=== PATIENT | female | born 1980 | race Caucasian/White ===

== ENCOUNTER → 2019-09-12 | Outpatient (CLI) | payer OTHER, SELFPAY ==
[2015-05-19 10:22] VITALS: BMI 37.3
--- NOTE | 2019-09-12 09:00 | LES_PTH ---
PATIENT: MALDONADO KINCAID LOC: [facility] U#:[id number] AGE/SX: 39/F ROOM: RE09/12/[address]: Dr. Vladimir Alvarez MD : 1980 BED: DIS: 09/12/2019 SPEC #: [id number] RECD: 09/12/19 14:59 STATUS: CHELSIE REMic #: [id number] HUMERA: 09/12/19 09:[address]: Vladimir Alvarez DEPT: SURGICAL PATHOLOGY RECD BY: Junior Zendejas ENTERED: 09/13/19 09:12 SP TYPE: Lesion OTHR DR: Dr. Mateo Peterson III, MD Tissues: Mouth, NOS Procedures: Special Stain Group I Surgery Specimen Level IV GMS Stain (control) HEADER OPERATION: Biopsy PRE-OP DIAGNOSIS: Lesion of oral cavity TISSUE SUBMITTED: Lesion of oral cavity MICROSCOPIC DIAGNOSIS Lesion of oral cavity, biopsy: A fragment of squamous mucosa with hyperkeratosis, parakeratosis, acute inflammation and superficial bacterial colonization. Special stain for fungi is negative for organisms; matched control is appropriate. Negative for malignancy. See comment. CHRIS:bahman 09/16/19 COMMENT Clinical correlation and appropriate follow up are necessary. MICROSCOPIC DESCRIPTION Slides are reviewed. GROSS DESCRIPTION Received in fixative is one container labeled with the patient's name and designated oral cavity mass. The specimen consists of a piece of johnson mucosal tissue measuring 0.3 x 0.2 x 0.1 cm. The specimen is totally submitted in one cassette. / CHRIS:bahman 09/13/19 TC:2 CPT: 25336, 66051
== END | disposition home or self-care (01) ==
LOC: LABSPEC 15:13
PROVIDERS: PCP Family Medicine; Referring Provider Otolaryngology; Visit Provider Otolaryngology
DX: K13.70 Unspecified lesions of oral mucosa (principal)
CPT/HCPCS: 88305; 88312

== ENCOUNTER 2023-09-01 18:13 | Emergency (ER) | payer BC, SELFPAY ==
[2023-09-01 18:14] VITALS: BP 132/77; PULSE 108; RESP 22; TEMP 36.1; O2SAT 99
[2023-09-01 18:15] VITALS: BMI 37.8
--- NOTE | 2023-09-01 18:22 | NURSING ---
NO OLD EKGS
--- NOTE | 2023-09-01 18:47 | CT_ITS ---
INDICATION: PAIN. Additional history: Diffuse Abdomen Pain Today Hx:T Cell Lymphoma,Ovarian Cyst,Appendectomy EXAMINATION: CT ABDOMEN AND PELVIS with CONTRAST - CT Abdomen And Pelvis W/ Contrast Injection TECHNIQUE: Multiple axial images were obtained of the abdomen and pelvis following administration of IV contrast. Planar reconstructions obtained. A radiation dose optimization technique was used for this scan. RADIATION DOSAGE (If Supplied By Facility): CTDIvol = ( 16.46 ) mGy, DLP = ( 1128.31 ) mGycm IV Contrast dosage and agent: 100 mL Isovue-300 Oral contrast: None. COMPARISON: No pertinent previous studies for comparison.. FINDINGS: LOWER THORAX: Lungs are clear. Cardiac contour is normal, no pericardial effusion. No coronary vascular calcifications noted. HEPATOBILIARY: Liver: The liver is homogeneous and shows no evidence of focal lesion. Gallbladder: Gallbladder contains multiple moderate size calcifications, largest measuring 1.6 cm. No free fluid. No ductal dilatation. Pancreas: Pancreas is normal size configuration and density. No mass is noted. Spleen: The spleen is homogeneous and normal in size. . BOWEL: Stomach: The stomach is normal in size configuration, no evidence of focal masses, abnormal calcifications. No hiatal hernia noted. Bowel: Small and large have normal configuration, no masses or bowel obstruction noted. Large amount of retained stool throughout the colon, developing constipation is a consideration. No evidence diverticulitis. Appendix: Status post appendectomy.: GENITOURINARY: Adrenals: Both adrenal glands are normal in size. Kidneys: Kidneys appear symmetric in size. No calcifications are seen in the collecting system. There is no hydronephrosis or surrounding fluid. Bladder: Normal Pelvic organs: The visualized pelvic organs are normal in size and configuration. No masses or adenopathy noted. Trace fluid in the cul-de-sac which is nonspecific. RETROPERITONEUM: There is normal appearance of the abdominal aorta and inferior vena cava. LYMPH NODES: No evidence of retroperitoneal or para-aortic masses fluid collections or adenopathy. PERITONEAL CAVITY: No ascites noted ANTERIOR ABDOMINAL WALL: Normal, no hernia identified. BONES AND SOFT TISSUES: The skeleton shows no evidence for fractures or destructive lesions. OTHER: None CT/Abdomen/Pelvis W IV Cont ONLY IMPRESSION: 1. No masses bowel obstruction abscess free fluid or free air. Moderate to large amount retained stool in the colon. Developing constipation is a consideration. 2. Status post appendectomy. 3. Cholelithiasis without ductal dilatation. 4. No evidence of renal calcification or obstructive uropathy. 5. Trace nonspecific fluid in the cul-de-sac. Electronically Signed: Buck Garcia MD at 19:59 EDT ,
[2023-09-01] MEDS: Ondansetron 4 MG/2 ML Vial IV (18:53)
[2023-09-01] MEDS: Morphine 4 MG/ML Syringe IV (18:53)
[2023-09-01 19:18] LABS: Absolute Neutrophil Count 4.1 X10^3/uL (2.0-7.7); Basophil# 0.04 X10^3/uL; Basophil% 0.6 % (0-1); Eosinophil# 0.04 X10^3/uL; Eosinophils% 0.6 % (0-5); Hematocrit 40.4 % (37-47); Hemoglobin 13.6 g/dL (12.0-15.0); Lymphocyte % 29.3 % (19-41); Mean Corp Hgb Conc 33.7 g/dL (32-36); Mean Corpuscular Hgb 29.8 pg (27.0-32.0); Mean Corpuscular Volume 88.6 fL (81-99); Mean Platelet Vol. 10.6 fl (6.2-12.0); Monocyte# 0.67 X10^3/uL; Monocyte% 9.8 % (0-10); NRBC Flagged by Analyzer 0 % (0-5); Neutrophil # 4.06 X10^3/uL (2.7-7.7); Neutrophil % 59.6 % (47-70); Platelet Count 294 K/mm3 (150-450); RBC Distribution Width CV 11.7 % (11.6-14.6); RBC Distribution Width SD 37.5 fl (35.1-43.9); Red Blood Count 4.56 M/mm3 (4.2-5.4); White Blood Count 6.8 K/mm3 (4.4-11.0)
[2023-09-01 19:26] LABS: Internal QC Validated? YES +Cl - CLEAR BKGD; Pregnancy, Serum, hCG Quali. NEGATIVE Negative
[2023-09-01 19:37] LABS: AST(SGOT) 19 U/L (15-37); Alanine Aminotransfer ALT/SGPT 19 U/L (13-56); Albumin, Serum 3.4 g/dL (3.2-5.0); Alkaline Phosphatase 68 U/L (45-117); Anion Gap 11 (5-15); BUN 16 mg/dL (7-18); Calcium,Total 8.9 mg/dL (8.5-10.1); Chloride 106 mmol/L (98-107); Creatinine, Serum 0.84 mg/dL (0.55-1.02); EST Glomerular Filtration Rate 79 mL/min (>60); Est Glom Filt Rate - Afr Amer 95 mL/min (>60); Estimated Creatinine Clearance 110.21 ml/min; Globulin 3.4 g/dL (2.2-4.2); Glucose 118 mg/dL (74-106); Lipase 50 U/L (13-75); Potassium 3.2 mmol/L (3.5-5.1); Protein, Total 6.8 g/dL (6.4-8.2); Sodium Level 137 mmol/L (136-145)
--- NOTE | 2023-09-01 19:40 | EX.ED.DYSGE1 ---
HPI History of Present Illness Chief Complaint: Abd Pain Detail of Chief Complaint: Unbearable pain onset 3 hours prior to arrival Informant: patient Onset/Context/Timing Onset: Today and Hours Context: Sudden Onset Timing: Intermittent and Waxes and wanes Quality: Severe unbearable pain Location: Abdomen and migratory Current Severity: Severe Maximum Severity: Severe Worsened by: Nothing Relieved by: Nothing Associated Symptoms Associated Symptoms: No constitutional symptoms, no respiratory or cardiac symptoms and no neuro Narrative Narrative: Patient is a 43-year-old woman who was diagnosed with T-cell lymphoma around 2018 2019. She is seen by oncology at [facility], [place]. She was recently started on a new medication bexartene. She takes 1 tablet daily. This has known side effect of pain and 30% of patients. Other common side effects are rash which she had prior to the medication, itching, headache and possible infection. She denies headache. Denies double vision blurred vision loss of vision. Denies ringing ears decreased hearing. She has trouble with speech or swallowing. She denies cardiac or respiratory symptoms. She denies vomiting or diarrhea. She denies dysuria, frequency, urgency or hematuria. She denies upper or lower extremity pain. Patient reports waking up several times at night having difficulty going back to sleep. She gets up to urinate. She was placed on gabapentin for trigeminal neuralgia. This was bilateral. She is seen by neurology at [facility] and had recent MRI of her brain. Patient was brought in because of pain. Prior similar symptoms: No Recent Illness/Hospitalization: Yes [facility] Medical History Anemia Neoplasm of unspecified behavior of bone, soft tissue, and skin Depressive disorder Dermatitis Home Medications ?Medication ?Instructions ?Recorded ?Last Taken ?Type Loratadine 10 mg PO DAILY PRN Allergies 05/25/20 Unknown History cetirizine 10 mg capsule 20 mg PO DAILY 05/25/20 09/01/23 History famotidine-Ca carb-mag hydrox 10 1 each PO DAILY PRN Indigestion 05/25/20 Unknown History mg-800 mg-165 mg chewable tablet fluoxetine 40 mg capsule 40 mg PO DAILY 05/25/20 Unknown History bexarotene 75 mg capsule 150 mg PO DAILY 09/01/23 09/01/23 History cetirizine 20 mg .ROUTE DAILY 09/01/23 Unknown History fexofenadine hydrochloride 360 mg DAILY 09/01/23 Unknown History gabapentin 300 mg capsule 300 mg PO QHS 09/01/23 Unknown History levothyroxine 50 mcg tablet 50 mcg PO DAILY 09/01/23 Unknown History triamcinolone acetonide 0.1 % applic topical BID PRN PRN rash 09/01/23 Unknown History topical cream Allergy/AdvReac Type Severity Reaction Status Date / Time animal dander Allergy Intermediate Shortness Verified 09/01/23 18:31 of breath erythromycin base AdvReac Severe Diarrhea Verified 09/01/23 18:31 (Erythromycin Base) Family History Mother Breast cancer Grandmother Skin cancer Breast cancer Aunt Breast cancer Grandfather Lung cancer Surgical History History of removal of ovarian cyst History of appendectomy Social History (Updated 09/01/23 @ 19:[address] Keaton Peña MD) household members: spouse Smoking Status: Never smoker ROS ROS ED Constitutional Constitutional ED: Denies chills, fever(s), subjective, sweats or weight loss Eyes Eyes: Denies blurry vision, change in vision or diplopia ENT ENT ED: Denies ear pain, rhinorrhea or sore throat Cardiovascular Cardiovascular: Denies chest pain or palpitations Respiratory/Chest Respiratory/Chest: Denies cough, dyspnea or dyspnea on exertion Gastrointestinal Gastrointestinal: Reports abdominal pain; Denies constipation, diarrhea, melena or vomiting Genitourinary Genitourinary ED: Denies dysuria, hematuria or urinary frequency Musculoskeletal Musculoskeletal: Denies arthralgias, back pain, myalgias or neck pain Integumentary Reports rash Neurologic Neurologic: Denies headache(s) or paresthesias Psychiatric Psychiatric: Denies anxiety or depression Hematologic/Lymphatic Hematologic/Lymphatic: Reports systems reviewed and no addt'l complaints, except as documented EXAM Physical Exam Const Vital Signs: 09/01/23 18:14 09/01/23 20:14 Temperature 96.9 F L 98.1 F Temperature Source Temporal Temporal Pulse Rate 108 H 64 Respiratory Rate 22 H 16 Blood Pressure 132/77 H 125/67 H Blood Pressure Mean 95 86 Pulse Ox 99 96 Oxygen Delivery Method Room Air Room Air Positive well nourished and well developed Constitutional Narrative: Patient is tearful. At times she becomes confused. She was upset when she could not answer questions immediately. General Appearance ED: well developed; Negative for pallor HEENT Reports moist mucous membranes HEENT Narrative: Head is atraumatic normocephalic. Ears normal. Nares patent. Posterior pharynx is normal. Eyes PERRL and EOMs intact bilaterally General Eye ED: Negative for pale conjunctiva or scleral icterus Neck no lymphadenopathy, supple and no JVD Chest Wall inspection of chest normal and palpation of chest normal Resp normal respiratory effort and clear to auscultation bilaterally Cardio regular rhythm, S1 normal heart sound, S2 normal heart sound and no murmurs; Negative for regular rate Rate: tachycardic GI normal to inspection, nondistended, normoactive bowel sounds, non-distended and no masses; Negative for non-tender or hepatosplenomegaly Auscultation: hypoactive bowel sounds Palpation: tender LLQ and LUQ Extremity normal to inspection Extremity Narrative: There is no clubbing or cyanosis. General Extremety ED: Negative for edema or tenderness General Extremity: Negative for edema Neuro oriented x3, CN's II-XII intact bilaterally and no sensory deficits noted Psych Mood & Affect: depressed and tearful Skin No no rashes or lesions noted and skin turgor normal General Skin Exam: Negative for jaundice or pallor MDM MDM MDM Narrative Medical decision making narrative: The patient may represent adverse effects to the medication. Because of concern for possible infection blood work was obtained and CT of the abdomen was obtained. There is a 1 to 10% chance of arthralgia. Also incidence of renal dysfunction. Lab Data Attestation: I reviewed the patient's lab results. Lab results narrative: CBC is normal. Comprehensive metabolic panel is unremarkable. Potassium is 3.2. Glucose is 118 with normal CO2 anion gap. BUN and creatinine are normal with an estimated GFR 79. Because of the left upper quadrant pain lipase was obtained and is negative. Liver enzymes are normal. Labs: Laboratory Results - last 24 hr 09/01/23 09/01/23 09/01/23 18:33 19:20 20:32 WBC 6.8 RBC 4.56 Hgb 13.6 Hct 40.4 MCV 88.6 MCH 29.8 MCHC 33.7 RDW Std Deviation 37.5 RDW Coeff of Sheryl 11.7 Plt Count 294 MPV 10.6 Immature Gran % (Auto) 0.100 Neut % (Auto) 59.6 Lymph % (Auto) 29.3 Shannon % (Auto) 9.8 Eos % (Auto) 0.6 Baso % (Auto) 0.6 Absolute Neuts (auto) 4.1 Absolute Lymphs (auto) 2.00 Nucleated RBC % 0 Sodium 137 Potassium 3.2 L Chloride 106 Carbon Dioxide 20.0 L Anion Gap 11 BUN 16 Creatinine 0.84 Estim Creat Clear Calc 110.21 Est GFR (MDRD) Af Amer 95 Est GFR (MDRD) Non-Af 79 BUN/Creatinine Ratio 19.0 Glucose 118 H Lactic Acid 3.2 H* 1.7 Calcium 8.9 Total Bilirubin 0.40 AST 19 ALT 19 Alkaline Phosphatase 68 Total Protein 6.8 Albumin 3.4 Globulin 3.4 Albumin/Globulin Ratio 1.0 Lipase 50 Serum , Qual NEGATIVE Repeat lactate after fluids 1.7. Radiography Diagnostic Testing: Clinical Impression(s) from Imaging Studies Abdomen/Pelvis CT 09/01/23 18:47 IMPRESSION: 1. No masses bowel obstruction abscess free fluid or free air. Moderate to large amount retained stool in the colon. Developing constipation is a consideration. 2. Status post appendectomy. 3. Cholelithiasis without ductal dilatation. 4. No evidence of renal calcification or obstructive uropathy. 5. Trace nonspecific fluid in the cul-de-sac. Electronically Signed: Buck Garcia MD at 19:59 EDT , CT of the abdomen pelvis with IV contrast reveals multiple large gallstones. There is no acute inflammation of the gallbladder. Kidneys appear normal with no evidence of renal calculi or evidence of hydronephrosis. There are no inflammatory changes noted within the abdomen. Awaiting formal read by radiologist, 1949. Treatment and Re-Evaluation :: Patient was reevaluated more than once. She was told the cause of her abdominal pain is uncertain. This may be an adverse reaction to the chemo medicine she is taking. Recommend contacting her oncologist at [facility]. She was told she has gallstones. She was unaware of this. 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, Adult T-cell lymphoma Prescriptions: No Action fluoxetine 40 MG capsule 40 mg PO DAILY famotidine-Ca carb-mag hydrox 1 EACH tablet,chewable 1 each PO DAILY PRN (Reason: Indigestion) cetirizine 10 MG capsule 20 mg PO DAILY Loratadine 10 mg PO DAILY PRN (Reason: Allergies) bexarotene 75 mg capsule 150 mg PO DAILY levothyroxine 50 mcg tablet 50 mcg PO DAILY gabapentin 300 mg capsule 300 mg PO QHS fexofenadine hydrochloride 360 mg DAILY cetirizine 20 mg .ROUTE DAILY triamcinolone acetonide 0.1 % cream topical BID PRN PRN (Reason: rash) Primary Care Provider: Miguelina Wang Referrals: Miguelina Wang MD [Primary Care Provider] - As Needed Activity Restrictions/Additional Instructions: 1. Recommend contacting your oncologist at [facility] to determine if the chemo medication is the cause of your pain Print Language: Egyptian Disposition Disposition: Home, Self Care
[2023-09-01 20:05] LABS: Lactic Acid 3.2 mmol/L (0.4-1.9)
[2023-09-01 20:14] VITALS: BP 125/67; PULSE 64; RESP 16; TEMP 36.7; O2SAT 96
[2023-09-01] MEDS: 0.9% Normal Saline (1000mL) 1,000 ML 1000 ML IV (20:15)
[2023-09-01 20:19] LABS: Reflex Lactate? Y
[2023-09-01 21:07] LABS: Lactic Acid 1.7 mmol/L (0.4-1.9)
--- NOTE | 2023-09-01 21:31 | EKG12_ITS ---
Test Reason : abd pain Blood Pressure : / mmHG Vent. Rate : 084 BPM Atrial Rate : 084 BPM P-R Int : 144 ms QRS Dur : 088 ms QT Int : 414 ms P-R-T Axes : 066 070 047 degrees QTc Int : 489 ms Normal sinus rhythm Prolonged QT Abnormal ECG Confirmed by Cade Michaels ([id number]), editorial director BANDAR LUZ ([id number]) on 09/04/2023 10:40:51 AM Referred By: Confirmed By:Cade Michaels
[2023-09-01 22:00] VITALS: BP 116/69; PULSE 61; RESP 16; TEMP 36.6; O2SAT 98
[2023-09-01 22:39] VITALS: BP 116/69; PULSE 84; RESP 20; TEMP 36.7; O2SAT 99
== END 2023-09-01 22:39 | disposition home or self-care (01) ==
PROVIDERS: Emergency Provider Emergency Medicine; PCP Internal Medicine; Visit Provider Emergency Medicine
DX: R10.9 Unspecified abdominal pain (principal); C91.50 Adult T-cell lymphoma/leukemia (HTLV-1-associated) not having achieved remission; T45.1X5A Adverse effect of antineoplastic and immunosuppressive drugs, initial encounter; Z79.899 Other long term (current) drug therapy
CPT/HCPCS: 74177; 80053; 83605; 83690; 84703; 85025; 93005; 96361; 96374; 96375; 99283; J7030; Q9967; A4216; J2405

== ENCOUNTER 2024-01-04 09:01 | Emergency (ER) | payer BC, SELFPAY ==
[2024-01-04 09:01] VITALS: BP 121/97; PULSE 102; RESP 18; TEMP 37.1; O2SAT 100; BMI 34.8
[2024-01-04 09:05] VITALS: BP 121/97; PULSE 102; RESP 18; TEMP 37.1; O2SAT 100
[2024-01-04] MEDS: 0.9% Normal Saline (500mL Bag) 500 ML 1000 ML IV (09:40)
[2024-01-04] MEDS: Ketorolac 30 MG/ML Syringe IV (09:41)
[2024-01-04 09:48] LABS: Absolute Lymphocyte Count 0.54 X10^3/uL (0.83-4.51); Absolute Neutrophil Count 3.2 X10^3/uL (2.0-7.7); Basophil# 0.01 X10^3/uL; Basophil% 0.2 % (0-1); Eosinophil# 0.02 X10^3/uL; Eosinophils% 0.5 % (0-5); Hematocrit 39.4 % (37-47); Hemoglobin 12.8 g/dL (12.0-15.0); Lymphocyte # 0.54 X10^3/ul (0.83-4.51); Lymphocyte % 13.3 % (19-41); Mean Corp Hgb Conc 32.5 g/dL (32-36); Mean Corpuscular Hgb 29.8 pg (27.0-32.0); Mean Corpuscular Volume 91.8 fL (81-99); Mean Platelet Vol. 9.8 fl (6.2-12.0); Monocyte# 0.31 X10^3/uL; Monocyte% 7.6 % (0-10); NRBC Flagged by Analyzer 0 % (0-5); Neutrophil # 3.17 X10^3/uL (2.7-7.7); Neutrophil % 77.9 % (47-70); POSITIVE DIFFERENTIAL YES; Platelet Count 179 K/mm3 (150-450); RBC Distribution Width CV 12.5 % (11.6-14.6); RBC Distribution Width SD 41.9 fl (35.1-43.9); Red Blood Count 4.29 M/mm3 (4.2-5.4); White Blood Count 4.1 K/mm3 (4.4-11.0)
[2024-01-04 09:57] LABS: International Normalized Ratio 1.1
[2024-01-04 09:58] LABS: Partial Thromboplast Time 31.1 Seconds (24.1-36.2)
[2024-01-04 10:05] VITALS: BP 138/72; PULSE 100; RESP 18; TEMP 37.1; O2SAT 100
[2024-01-04 10:10] LABS: AST(SGOT) 33 U/L (15-37); Alanine Aminotransfer ALT/SGPT 22 U/L (13-56); Alkaline Phosphatase 51 U/L (45-117); Anion Gap 4 (5-15); BUN 8 mg/dL (7-18); BUN/Creat Ratio 10.3 RATIO (10-20); Bilirubin, Direct 0.07 mg/dL (0.00-0.30); Calcium,Total 8.8 mg/dL (8.5-10.1); Chloride 106 mmol/L (98-107); Creatinine, Serum 0.78 mg/dL (0.55-1.02); EST Glomerular Filtration Rate 86 mL/min (>60); Est Glom Filt Rate - Afr Amer 104 mL/min (>60); Estimated Creatinine Clearance 113.52 ml/min; Globulin 3.4 g/dL (2.2-4.2); Glucose 90 mg/dL (74-106); Potassium 4.1 mmol/L (3.5-5.1); Protein, Total 6.4 g/dL (6.4-8.2); Sodium Level 134 mmol/L (136-145)
[2024-01-04 10:40] LABS: Bacteria 0 SEEN /hpf (None Seen); Mucous, Urine 0 SEEN /hpf (<or=2+); Red Blood Cells-Urine 0 SEEN /hpf (0-5)
[2024-01-04 10:41] LABS: Color, Urine Yellow (Yellow); Glucose, Dipstick Normal (Normal); Ketone-Dipstick Negative (Negative); Leukocyte Esterase-Dipstick 25 /ul (Negative); Nitrite-Dipstick Negative (Negative); Occult Blood-Urine Negative /ul (Negative); Protein-Dipstick Negative (Negative); Specific Gravity, Urine 1.015 (1.002-1.030); Urine Bilirubin Dipstick Negative (Negative); Urine Clarity Clear (Clear); Urine Urobilinogen 4 mg/dl (Normal)
[2024-01-04 10:51] LABS: Squamous Epithelial Cells - UA 0-5 SEEN /hpf (5-10); White Blood Cells 0-5 SEEN /hpf (0-5)
[2024-01-04 11:00] VITALS: BP 136/81; PULSE 94; RESP 16; TEMP 37
[2024-01-04 11:27] VITALS: BP 136/81; PULSE 94; RESP 16; TEMP 37; O2SAT 99
== END 2024-01-04 11:32 | disposition home or self-care (01) ==
PROVIDERS: Emergency Provider Emergency Medicine; PCP Internal Medicine; Visit Provider Emergency Medicine
DX: J18.9 Pneumonia, unspecified organism (principal); C85.10 Unspecified B-cell lymphoma, unspecified site
CPT/HCPCS: 71045; 80048; 80076; 81001; 85025; 85610; 85730; 87040; 87631; 96361; 96374; 99284; J7040; A4216